=== PATIENT | male | born 1970 | race Caucasian/White ===

== ENCOUNTER 2019-03-26 13:46 | Emergency (ER) | payer MEDICAID ==
[~2019-03-26] VITALS: Ht 167.6 cm; Wt 74.8 kg
[2019-03-26 13:55] VITALS: BP 159/110; Ht 167.6 cm; Wt 74.8 kg
== END 2019-03-26 15:58 | disposition home or self-care (01) ==
LOC: ED 13:46
DX: S62.502D Fracture of unspecified phalanx of left thumb, subsequent encounter for fracture with routine healing (principal); I10 Essential (primary) hypertension; X58.XXXD Exposure to other specified factors, subsequent encounter